=== PATIENT | male | born 1975 | race Caucasian/White ===

== ENCOUNTER → 2020-06-19 | Outpatient (CLI) | payer BC ==
[2020-06-19 14:49] LABS: African American GFR (CKD) 85.3 (60.0-200.0); Albumin 4.7 g/dL (3.80-4.90); Albumin/Globulin Ratio 2.47 (1.60-3.17); Anion Gap 7.4 mmol/L (4.00-12.00); BUN/Creat Ratio 12.5 Ratio (12.00-20.00); Calcium 9.8 mg/dL (8.7-10.3); Carbon Dioxide 28.6 mmol/L (21.6-31.8); Chol/HDL Ratio 4.9; Globulin 1.9 g/dL (1.6-3.3); LDL Cholesterol,Calculated 107.8 mg/dL (0.0-131.0); Non-African American GFR(CKD) 73.6 (60.0-200.0); Potassium 4.8 mmol/L (3.5-5.5); Total Bilirubin 0.5 mg/dL (0.2-1.2); Total Protein 6.6 g/dL (6.2-8.2); VLDL Calculation 52.2 mg/dL (5.00-40.00)
[2020-06-19 15:22] LABS: Basophils # (A) 0.04 X 10*3/uL (0.00-0.10); Basophils % (A) 1.1 %; Eosinophils # (A) 0.11 X 10*3/uL (0.04-0.35); HCT 45.4 % (39.6-50.0); Lymphocytes # (A) 1.19 X 10*3/uL (0.90-5.00); Lymphocytes % (A) 32.6 %; MCH 30.4 pg (27.0-32.0); MCV 91.9 fL (80.0-97.0); Mean Platelet Volume 10.1 fL (9.5-12.2); Monocytes # (A) 0.29 X 10*3/uL (0.20-1.00); Monocytes % (A) 7.9 %; Neutrophils # (A) 2.01 X 10*3/uL (1.80-7.70); Neutrophils % (A) 55.1 %; Platelet Count 222 X 10*3/uL (140-440); RBC 4.94 X 10*6/uL (4.40-5.60); RDW 11.8 % (11.5-14.5); WBC 3.65 X 10*3/uL (4.50-10.00)
== END | disposition home or self-care (01) ==
LOC: LABWHC1 08:52
PROVIDERS: ATTEND Family Medicine
DX: E29.1 Testicular hypofunction (principal)
CPT/HCPCS: 36415; 80053; 80061; 82040; 82550; 82672; 84270; 84403; 85025

== ENCOUNTER 2022-11-10 17:12 | Emergency (ER) | payer BC ==
[2022-11-10 17:38] VITALS: BP 136/74; PULSE 85; TEMP 99.5
--- NOTE | 2022-11-10 18:32 | ED ---
General Adult HPI - General Source: patient, RN notes reviewed Mode of arrival: ambulatory Limitations: no limitations <Roxanne Ortiz - Last Filed: 11/10/22 18:33> - General Source: patient, family, RN notes reviewed Mode of arrival: ambulatory Limitations: no limitations <Ap Lozada - Last Filed: 11/10/22 19:14> - General Chief complaint: Extremity Injury, Lower Stated complaint: Poss leg infection Time Seen by Provider: 11/10/22 18:31 - History of Present Illness Initial comments: 47-year-old female with no significant past medical history presents the emergency department with chief complaint of right leg problem. Patient reports that he was working on a motorcycle when the brake onto his leg causing him a laceration. Last tetanus was 2018. Admits to numbness and swelling to the area. (Roxanne Ortiz) Patient is a pleasant 47-year-old male presenting to the emergency department with concern for right leg infection. Patient was struck by the kickstand to his right leg as ago. Patient felt it was healing well however today he has noticed some redness and discomfort and swelling. Area affected is a right anterior dutta. Patient had temperature at home 99. Patient took one Tylenol. No calf pain. (Ap Lozada) - Related Data Previous Rx's Medication Instructions Recorded Clindamycin [Cleocin] 2 tab PO Q6H #80 cap 11/10/22 Allergies Allergy/AdvReac Type Severity Reaction Status Date / Time No Known Allergies Allergy Verified 11/10/22 17:38 Review of Systems ROS Other: All systems not noted in ROS Statement are negative. <Roxanne Ortiz - Last Filed: 11/10/22 18:33> ROS Other: All systems not noted in ROS Statement are negative. Constitutional: Reports: as per HPI Eyes: Denies: eye pain ENT: Denies: ear pain Respiratory: Denies: cough, dyspnea Cardiovascular: Denies: chest pain Endocrine: Denies: fatigue Skin: Reports: as per HPI, rash <Ap Lozada - Last Filed: 11/10/22 19:14> ROS Statement: Those systems with pertinent positive or pertinent negative responses have been documented in the HPI. Past Medical History Past Medical History: Hyperlipidemia History of Any Multi-Drug Resistant Organisms: None Reported Past Surgical History: No Surgical Hx Reported Past Psychological History: No Psychological Hx Reported Smoking Status: Former smoker Past Alcohol Use History: Occasional Past Drug Use History: None Reported <Rosalindjo-annRoxanne rivera - Last Filed: 11/10/22 18:33> General Exam Limitations: no limitations <Rosalindjo-annRoxanne rivera - Last Filed: 11/10/22 18:33> Limitations: no limitations General appearance: alert, in no apparent distress Head exam: Present: normocephalic Eye exam: Present: normal appearance Respiratory exam: Present: normal lung sounds bilaterally Cardiovascular Exam: Present: regular rate, normal rhythm Expanded Peripheral pulses: 2+: Posterior Tibialis (R), Posterior Tibialis (L) GI/Abdominal exam: Present: soft. Absent: tenderness Extremities exam: Present: other (Right anterior dutta with approximate 1 cm healing laceration. There is some mild erythema and warmth and swelling from the upper to the mid anterior dutta.). Absent: calf tenderness Neurological exam: Present: alert Psychiatric exam: Present: normal affect, normal mood Skin exam: Present: erythema <Ap Lozada - Last Filed: 11/10/22 19:14> - General Exam Comments Initial Comments: Visual Physical Exam Vital signs reviewed General: Well-appearing, nontoxic, no acute distress. Head: Normocephalic, atraumatic Eyes: PERRLA, EOMI ENT: Airway patent Chest: Nonlabored breathing Skin: No visual rash, normal skin tone Neuro: Alert and oriented 3 Musculoskeletal: No gross abnormalities (DianaRoxanne) Course Vital Signs 11/10/22 17:35 Temperature 99.5 F Pulse Rate 85 Respiratory 18 Rate Blood Pressure 136/74 O2 Sat by Pulse 97 Oximetry Medical Decision Making <NevilleAp - Last Filed: 11/10/22 19:14> - Medical Decision Making Was pt. sent in by a medical professional or institution (, PA, [facility], urgent care, hospital, or [facility]...) When possible be specific @ -No Did you speak to anyone other than the patient for history (EMS, parent, family, police, friend...)? What history was obtained from this source @ - is present and helps confirm history including when symptoms onset occ urred Did you review nursing and triage notes (agree or disagree)? Why? @ -I reviewed and agree with nursing and triage notes Were old charts reviewed (outside hosp., previous admission, EMS record, old EKG, old radiological studies, urgent care reports/EKG's, [facility] records)? Report findings @ -No old charts were reviewed Differential Diagnosis (chest pain, altered mental status, abdominal pain women, abdominal pain men, vaginal bleeding, weakness, fever, dyspnea, syncope, headache, dizziness, GI bleed, back pain, seizure, CVA, palpatations, mental health, musculoskeletal)? @ -Differential Fever: Pneumonia, viral URI, endocarditis, myocarditis, pericarditis, otitis, sinusitis, peritonsillar Abscess, retropharyngeal Abscess, epiglottitis, peritonitis, appendicitis, Della cystitis, diverticulitis, hepatitis, colitis, UTI, PID, TOA, pyelonephritis, prostatitis, epididymitis, meningitis, encephalitis, pulmonary embolism, CVA, thyroid storm, pancreatitis, adrenal crisis, cavernous sinus thrombosis, this is not meant to be an all-inclusive list. EKG interpreted by me (3pts min.). @ -As above X-rays interpreted by me (1pt min.). @ -Right tib-fib x-ray shows no acute process CT interpreted by me (1pt min.). @ -None done U/S interpreted by me (1pt. min.). @ -None done What testing was considered but not performed or refused? (CT, X-rays, U/S, labs)? Why? @ -None What meds were considered but not given or refused? Why? @ -None Did you discuss the management of the patient with other professionals (professionals i.e. , PA, [facility] [facility], lab, RT, psych nurse, social work nurse, beach lifeguard, teacher, grants officer, lead case manager)? Give summary @ -No Was smoking cessation discussed for >3mins.? @ -No Was critical care preformed (if so, how long)? @ -No Were there social determinants of health that impacted care today? How? (Homelessness, low income, unemployed, alcoholism, drug addiction, mares sportation, low edu. Level, literacy, decrease access to med. care, long-term, rehab)? @ -No Was there de-escalation of care discussed even if they declined (Discuss DNR or withdrawal of care, Hospice)? DNR status @ -No What co-morbidities impacted this encounter? (DM, HTN, Smoking, COPD, CAD, Cancer, CVA, ARF, Chemo, Hep., AIDS, mental health diagnosis, sleep apnea, morbid obesity)? @ -None Was patient admitted / discharged? Hospital course, mention meds given and route, prescriptions, significant lab abnormalities, going to OR and other pertinent info. @ -Patient presents with mild cellulitis. Patient will be started on oral antibiotics and recommended follow-up with primary care physician, return if worsen. Tetanus will be updated. Undiagnosed new problem with uncertain prognosis? @ -No Drug Therapy requiring intensive monitoring for toxicity (Heparin, Nitro, Insulin, Cardizem)? @ -No Were any procedures done? @ -No Diagnosis/symptom? @ -Cellulitis Acute, or Chronic, or Acute on Chronic? @ -Acute Uncomplicated (without systemic symptoms) or Complicated (systemic symptoms)? @ -default Side effects of treatment? @ -No Exacerbation, Progression, or Severe Exacerbation? @ -No Poses a threat to life or bodily function? How? (Chest pain, [place], [place], pneumonia, PE, COPD, DKA, ARF, appy, cholecystitis, CVA, Diverticulitis, Homicidal, Suicidal, threat to staff... and all critical care pts) @ -No (Ap Lozada) Disposition <Roxanne Ortiz - Last Filed: 11/10/22 18:33> Is patient prescribed a controlled substance at d/c from ED?: No Time of Disposition: 19:13 <Ap Lozada - Last Filed: 11/10/22 19:14> Clinical Impression: Cellulitis Disposition: HOME SELF-CARE Condition: Stable Instructions (If sedation given, give patient instructions): Cellulitis (ED) Additional Instructions: Please follow-up with primary care physician in the next 23 days for recheck. R eturn for fevers, increased pain, swelling, worsening symptoms or other concerns. Prescription has been sent to pharmacy. Prescriptions: Clindamycin [Cleocin] 2 tab PO Q6H #80 cap Referrals: Gabino Díaz MD [Primary Care Provider] - 1-2 days
[2022-11-10] MEDS ORDERED: CLINDAMYCIN 150 MG CAP PO STA (19:08)
[2022-11-10] MEDS ORDERED: DIPH,PERTUS(ACELL)TETVAC-LF 0.5 ML VIAL IM ONE (19:13)
--- NOTE | 2022-11-10 19:39 | XR ---
EXAMINATION TYPE: XR tibia fibula RT DATE OF EXAM: 11/10/2022 7:06 PM INDICATION: Patient age:Male; 47 years old; Reason for study: Erythema and edema to right leg; PHH. COMPARISON: No relevant priors TECHNIQUE: The right tibia/fibula was examined in AP and lateral projections. FINDINGS: No evidence of any acute osseous pathology, joint dislocation, or soft tissue swelling is n oted. IMPRESSION: No evidence of acute fracture.
[2022-11-10 19:44] VITALS: RESP 20
== END 2022-11-10 19:48 | disposition home or self-care (01) ==
LOC: EC 17:12
DX: S81.811A Laceration without foreign body, right lower leg, initial encounter (principal); L03.115 Cellulitis of right lower limb; Z87.891 Personal history of nicotine dependence; W22.8XXA Striking against or struck by other objects, initial encounter
CPT/HCPCS: 90471; 90715; 99283